=== PATIENT | female | born 1990 | race Caucasian/White ===

== ENCOUNTER 2016-08-05 01:18 | Emergency (ER) | payer OTHER | END 2016-08-05 03:13 | disposition home or self-care (01) | LOC: ER 01:18 | DX: A08.4 Viral intestinal infection, unspecified (principal); F32.9 Major depressive disorder, single episode, unspecified; Z79.899 Other long term (current) drug therapy; Z88.1 Allergy status to other antibiotic agents | CPT/HCPCS: 36415; 96361; 96374 ==